=== PATIENT | male | born 1960 | race Caucasian/White ===

== ENCOUNTER 2023-07-25 13:45 | Observation (INO) ==
[2023-07-25 14:06] LABS: ABS Basophils 0.1 10^3/uL (0.0-0.1); ABS Eosinophils 0.1 10^3/uL (0.0-0.5); ABS Lymphocytes 0.9 10^3/uL (1.0-4.8); ABS Monocytes 0.3 10^3/uL (0.0-1.1); ABS Neutrophils 4.9 10^3/uL (1.5-7.6); Eosinophil % 1.3 %; Hemoglobin 13.7 g/dL (13.2-16.3); Lymphocyte % 13.8 %; Mean Corpuscular Hemoglobin 29.9 pg (27-33); Mean Corpuscular Hgb Conc 34.2 g/dL (31-36); Mean Corpuscular Volume 87.3 fL (80-97); Mean Platelet Volume 7.7 fL (7.5-11.2); Platelet Count 243 10^3/uL (150-450); Red Blood Count 4.58 10^6/uL (4.06-5.63); Red Cell Distribution Width 13.5 % (12-17); White Blood Count 6.2 10^3/uL (3.6-10.2)
[2023-07-25 14:19] LABS: INR 0.96 (0.83-1.13)
[2023-07-25 15:57] LABS: High Sensitivity Troponin 1 Hr 13 pg/mL (<20)
[2023-07-25 16:28] LABS: Albumin 4.4 g/dL (3.2-5.2); Albumin/Globulin Ratio 1.6 (1-3); Calcium 9.3 mg/dL (8.6-10.3); Creatinine, Serum 1.18 mg/dL (0.67-1.17); Globulin 2.7 g/dL (2-4); Magnesium 1.8 mg/dL (1.9-2.7); Potassium 4.3 mmol/L (3.5-5.0); Total Bilirubin 0.5 mg/dL (0.2-1.0); Total Protein 7.1 g/dL (6.4-8.9); eGFR CKD-EPI 69.8 (>60)
[2023-07-25] MEDS: NS 0.9% 1000 ml BAG 1,000 ML IV SCH (17:55)
[2023-07-25] MEDS: Magnesium Sulfate 2 gm BAG 2 GM/50 ML BAG IVPB ONE (17:55)
[2023-07-25] MEDS: Morphine 4 MG/ML VIAL (1 ml) IV ONE (17:55)
[2023-07-25] MEDS ORDERED: Dextrose 50% Syringe 50 ml 25 GM/50 ML SYRINGE IV PUSH PRN (20:01)
[2023-07-25 20:51] LABS: HDL Cholesterol 47.9 mg/dL
[2023-07-26 06:03] LABS: ABS Basophils 0.1 10^3/uL (0.0-0.1); ABS Eosinophils 0.1 10^3/uL (0.0-0.5); ABS Lymphocytes 1.4 10^3/uL (1.0-4.8); ABS Monocytes 0.3 10^3/uL (0.0-1.1); ABS Neutrophils 2.9 10^3/uL (1.5-7.6); Eosinophil % 2.1 %; Hematocrit 39.6 % (38-53); Hemoglobin 13.6 g/dL (13.2-16.3); Lymphocyte % 29.1 %; Mean Corpuscular Hemoglobin 29.7 pg (27-33); Mean Corpuscular Hgb Conc 34.2 g/dL (31-36); Mean Corpuscular Volume 86.8 fL (80-97); Mean Platelet Volume 7.5 fL (7.5-11.2); Nucleated Red Blood Cells % 0.1 %/100WBC (0.0-0.8); Platelet Count 209 10^3/uL (150-450); Red Blood Count 4.56 10^6/uL (4.06-5.63); Red Cell Distribution Width 13.7 % (12-17); White Blood Count 4.6 10^3/uL (3.6-10.2)
[2023-07-26 06:45] LABS: Calcium 8.7 mg/dL (8.6-10.3); Creatinine, Serum 0.95 mg/dL (0.67-1.17); Magnesium 1.8 mg/dL (1.9-2.7); Potassium 4.3 mmol/L (3.5-5.0); eGFR CKD-EPI 90.5 (>60)
[2023-07-26] MEDS ORDERED: Regadenoson 0.4 MG/5 ML SYRINGE ONE (07:35)
[2023-07-26] MEDS ORDERED: Aminophylline 25 MG/ML VIAL ONE (07:35)
[2023-07-26 13:19] VITALS: BP 150/109
== END 2023-07-26 13:51 | disposition home or self-care (01) ==
LOC: EDHOLD 13:45 → ED 13:45 → EDHOLD 07-26 14:06
PROVIDERS: ADMIT Student in an Organized Health Care Education/Training Program; ATTEND Student in an Organized Health Care Education/Training Program